=== PATIENT | female | born 1965 | race Caucasian/White ===

== ENCOUNTER 2017-06-05 13:25 | Emergency (ER) | payer BC ==
[2017-06-05 13:59] VITALS: RESP 18; TEMP 98
--- NOTE | 2017-06-05 14:58 | PDOC ---
Upper Respiratory HPI - General Chief Complaint: Respiratory Complaint Stated Complaint: cough since Tuesday Date Seen by Provider: 06/05/17 Time Seen by Provider: 13:50 Source: POSITIVE: Patient Exam Limitations: POSITIVE: No limitations Nurse's Notes Reviewed & Considered: Yes - History of Present Illness Initial Comments: The patient is a 52-year-old female who presents to the emergency room with a a day history of cough. She's had associated nasal congestion. She states that her temperature has not been above 99.3F. She saw her primary care provider 5 days ago and was diagnosed with "bronchitis". She was placed on prednisone, a cough syrup and an inhaler. Patient states her condition is not improved. She smokes about 1-1/2 packs per week. No known allergies. She states she did self medicate herself with some amoxicillin she had left over from a previous sinusitis. Timing: REPORTS: Constant Duration: >1 week (8 days) Severity: Moderate Quality: REPORTS: Other (No pain anywhere) Context: DENIES: Recent Foreign Travel, Insect Bite, Tick Bite, Multiple Pt's w / Same Sx, Recent Chemotherapy, Other Modifying Factors: improves with: Coughing Associated Symptoms: REPORTS: Cough, Productive Cough (Productive of mucopurulent sputum) Similar Symptoms Previously: Yes Recently seen/treated/hospitalized: Yes Any Prior Injuries Related to Current Complaint?: No - Patient Home Medications Home Medications: Home Medications Calcium 1 tab PO DAILY 11/15/11 Vitamin D3 1 tab PO DAILY 11/15/11 Clobetasol Propionate/Emoll [Clobetasol Emollient 0.05% Crm] 60 mg TOPICAL BID # 1 tube 08/06/16 Acyclovir [Zovirax] 1 tab PO QOD #90 tab 08/17/16 Naproxen 1 tab PO BID #180 tab 08/17/16 Gabapentin 1 cap PO QHS #90 cap 05/16/17 Methylprednisolone [Medrol] 4 mg PO as directed #1 packet 05/16/17 Pantoprazole Sodium 1 tab PO DAILY #14 tab 05/16/17 Albuterol Sulfate [Proair Hfa] 1 - 2 puff INH Q4-6H #1 inhaler 05/31/17 Benzonatate 200 mg PO TID #30 cap 05/31/17 Guaifenesin/Codeine Phos [Cheratussin Ac Syrup] 5 ml PO Q6H #120 ml 05/31/17 Prednisone 50 mg PO DAILY #5 tab 05/31/17 Azithromycin [Zithromax] 250 mg PO DAILY #6 tab 06/05/17 - Patient Allergies Allergies/Adverse Reactions: Allergies Allergy/AdvReac Type Severity Reaction Status Date / Time No Known Allergies Allergy Verified 06/05/17 13:48 Past Medical History - heen HEENT History: Denies History Cardiovascular History: Denies History Respiratory History:  Additional Respiratory History: SEASONAL ALLERGIES Gastrointestinal History: GERD, Irritable Bowel Syndrome Additional Gastrointestinal History: BLOATING/ DIARRHEA Genitourinary History: Recurrent UTI, Other (please comment) Additional Genitourinary History: KIDNEY INFECTIONS 2004 Endocrine History: Denies History Musculoskeletal History: Joint Pain Prosthesis or Implant: No Neurological History: Migraines, Frequent Headaches Additional Neurological History: MIGRAINE WITHOUT AURA Blood Disorders: Denies History Psychiatric History: Depression History of Sexually Transmitted Diseases: No LMP: 01/31 Cancer History: Denies History In Past Year Been Physically Harmed or Verbally Threatened: No History of MDRO: No History of Other Communicable Diseases: No Tobacco Use: Current Every Day Smoker Alcohol Use: Occasionally Substance Use Type: None Previous Surgical History: No Type / Date of Surgery: APPY, C SECTION/ TUBAL Anesthesia Reactions: No Malignant Hyperthermia: No Significant Family History: Cancer, Hypertension Additional Family History: BREAST CANCER-MOTHER. BLADDER- FATHER Past Medical History Reviewed: Reviewed - No Changes ROS - Limitations ROS Limitations: No Limitations Constitution: REPORTS: Denies Symptoms Cardiovascular: REPORTS: Denies Cardiac Symptoms Respiratory: REPORTS: Cough Productive Neurological: REPORTS: Denies Neuro Symptoms Gastrointestinal: REPORTS: Denies GI Symptoms Endocrine: REPORTS: Denies Symptoms Musculoskeletal: REPORTS: Denies MS Symptoms Genitourinary: REPORTS: Denies Symptoms Eyes: REPORTS: Denies Symptoms ENT: REPORTS: Denies Symptoms Skin: REPORTS: Denies Skin Symptoms Lympathic: REPORTS: Denies Lympathic Symptoms Immunologic: POSITIVE: Denies Symptoms Psychiatric: POSITIVE: Denies Psych Symptoms Upper Respiratory/Fever Exam - General Appearance General Appearance: REPORTS: Alert, Cooperative, No Acute Distress, No Evidence of Trauma - HEENT HEENT: POSITIVE: Head Inspection Nml, Eyes Inspection Nml, Ears Inspection Nml, Nose Inspection Nml, Oral/Dental Inspect. Nml, Pharynx Inspect. Nml, PERRL, EOMI - Neck Neck: REPORTS: Normal Inspection, Supple - Respiratory Respiratory: REPORTS: No Respiratory Distress, No Pleuritic Chest Pain, Speaks Full Sentences, No Pain on Inspiration, Rhonchi (Scattered rhonchi) - Cardiovascular Cardiovascular: REPORTS: Regular Rate and Rhythm, Heart Sounds Normal, Equal Pulses, Strong Pulses, No Murmur, No Gallop, No Friction Rub, No JVD Peripheral Pulses: Radial (R): 2+, Radial (L): 2+ - Skin Skin: REPORTS: Intact, Normal For Race, Warm, Dry, No Rash - Extremities Extremity: Non-Tender: (All Extremities), Normal ROM: (All Extremities), Normal Inspection: (All Extremities) - Neurological / Psychological Neurological: POSITIVE: 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 - Patient's Progress Pain Medication Addressed: POSITIVE: Not Applicable School/Work Release Addressed: POSITIVE: Not Applicable Re-Examine Time: 14:45 Status: POSITIVE: Unchanged Air Movement: Good Antibiotics Given: Yes (Zithromax) Nebulizer Treatment Given:: No (patient already has an inhaler) - Consult Counseled: POSITIVE: Patient, RE: Radiology Results, RE: DX, RE: Need for F/U RX Given: Yes (Zithromax) Patient Care Time - Estimated PCT Patient Care Time (In Minutes): 25 Vital Signs - Recent Vital Signs Vital Signs: Vital Signs (Last 8 hours) Temp Pulse Resp BP Pulse Ox 06/05/17 13:52 98 F 98 18 121/84 94 - VS Reviewed Vital Signs Reviewed: Yes Discharge Clinical Impression: Bronchitis Discharge Disposition: Discharged to Home Condition: Fair Prescriptions / Orders: Azithromycin [Zithromax] 250 mg PO DAILY #6 tab Patient Instructions Given at Discharge: Acute Bronchitis (ED) Additional Instructions: Continue the medications prescribed by a previous physician. Zithromax, 2 today and then one daily for 4 days thereafter. Stop smoking. Follow-up with your primary care provider. Return here anytime if condition worsens in any way. Follow Up With: WILLIAM WILL [Primary Care Provider] - (Instructions as above. Follow-up with your primary care provider. Return here anytime if condition worsens in any way.)
--- NOTE | 2017-06-06 09:01 | DI ---
PA /LATERAL CHEST X-RAY, 06/05/2017 1:59 PM : Clinical History: Persistent cough. Previous Exam: None at this facility. There is no acute soft tissue or bony abnormality. Heart size is normal. Lungs are clear. Mediastinal structures are normal. There are no pulmonary nodules. Reading: Normal chest x-ray.
== END 2017-06-05 14:49 | disposition home or self-care (01) ==
LOC: ER 13:25
DX: J20.9 Acute bronchitis, unspecified (principal); R09.81 Nasal congestion; R05 Cough
CPT/HCPCS: 71020; 99282; 99283